=== PATIENT | female | born 1960 | race Caucasian/White ===

== ENCOUNTER 2021-05-20 11:30 | Inpatient (IN) | payer MEDICARE, MEDICAID ==
[~2021-05-20] VITALS: Ht 177.8 cm; Wt 109.2 kg
[2021-05-20 11:55] LABS: BASO % 0 % (0-3); EOS # 0.7 x10^3/uL (0.0-0.7); EOS % 9 % (0-3); HEMATOCRIT 43.6 % (36.0-47.0); HEMOGLOBIN 14.5 g/dL (12.0-15.5); LYMPH # 1.4 x10^3/uL (1.0-4.8); LYMPH % 18 % (24-48); MEAN CORPUSCULAR HEMOGLOBIN 31 pg (25-35); MEAN CORPUSCULAR HGB CONC 33 g/dL (31-37); MEAN CORPUSCULAR VOLUME 92 fL (79-100); MONO # 0.5 x10^3/uL (0.0-1.1); MONO % 7 % (0-9); NEUT # 5.1 x10^3/uL (1.8-7.7); NEUT % 66 % (31-73); PLATELET COUNT 180 x10^3/uL (140-400); RED BLOOD COUNT 4.73 x10^6/uL (3.50-5.40); WHITE BLOOD COUNT 7.8 x10^3/uL (4.0-11.0)
[2021-05-20 12:05] LABS: CALCIUM 9.3 mg/dL (8.5-10.1); CREATININE 0.6 mg/dL (0.6-1.0); POTASSIUM 4.1 mmol/L (3.5-5.1); PROTHROMBIN TIME PATIENT 12.2 SEC (11.7-14.0)
[2021-05-20 12:11] LABS: ALBUMIN 3.7 g/dL (3.4-5.0); TOTAL BILIRUBIN 1.4 mg/dL (0.2-1.0); TOTAL PROTEIN 7.4 g/dL (6.4-8.2)
--- NOTE | 2021-05-20 13:14 | PHYS DOC ---
Past Medical History Additional Past Medical Histor: MALIGNANT NEOPLASM OF FRONTAL LOBE,EPILEPSY,FALLS,HEMORRHAGIC BRAIN TUMOR Past Surgical History: Other Additional Past Surgical Histo: UNKNOWN Smoking Status: Never Smoker Alcohol Use: None General Adult EDM: Chief Complaint: LOWER EXTREMITY SWELLING HPI: HPI: Patient is a 61 year old female who presents with here from [facility] after having a Doppler done on her right lower leg and it showed a groin to popliteal partial thrombosis. She is not on any kind of blood thinner. She has been complaining of edema and pain in the right lower leg. Patient has a history of seizures, hemiplegia on the right, hypothyroidism, difficulty walking, lack of coordination, cognitive communication deficit, high cholesterol, GERD, muscle weakness and atrophy, falls, epidural hemorrhage, malignant neoplasm of frontal lobe, cognitive communication deficit, epilepsy. Review of Systems: Review of Systems: Constitutional: Denies fever or chills. [] Eyes: Denies change in visual acuity. [] HENT: Denies nasal congestion or sore throat. [] Respiratory: Denies cough or shortness of breath. [] Cardiovascular: Denies chest pain or +edema. [] GI: Denies abdominal pain, nausea, vomiting, bloody stools or diarrhea. [] : Denies dysuria. [] Musculoskeletal: Denies back pain or joint pain. + Right leg pain [] Integument: Denies rash. [] Neurologic: Denies headache, focal weakness or sensory changes. [] Endocrine: Denies polyuria or polydipsia. [] Lymphatic: Denies swollen glands. [] Psychiatric: Denies depression or anxiety. [] Heart Score: C/O Chest Pain: No HEART Score for Chest Pain: HEART Score for Chest Pain Response (Comments) Value History Slighlty/Non-Suspicious 0 ECG Normal 0 Age >45 - < 65 1 Risk Factors 1 or 2 Risk Factors 1 Troponin < Normal Limit 0 Total 2 Risk Factors: Risk Factors: DM, Current or recent (<one month) smoker, HTN, HLP, family history of CAD, obesity. Risk Scores: Score 0 - 3: 2.5% MACE over next 6 weeks - Discharge Home Score 4 - 6: 20.3% MACE over next 6 weeks - Admit for Clinical Observation Score 7 - 10: 72.7% MACE over next 6 weeks - Early Invasive Strategies Allergies: Allergies: Allergies Coded Allergies Type Severity Reaction Last Updated Verified Influenza Virus Vaccines Allergy Intermediate UNKNOWN 05/20/21 Yes Physical Exam: PE: Constitutional: Well developed, well nourished, no acute distress, non-toxic appearance. [] HENT: Normocephalic, atraumatic, bilateral external ears normal, oropharynx moist, no oral exudates, nose normal. [] Eyes: PERRLA, EOMI, conjunctiva normal, no discharge. [] Neck: Normal range of motion, no tenderness, supple, no stridor. [] Cardiovascular:Heart rate regular rhythm, no murmur [] Lungs & Thorax: Bilateral breath sounds clear to auscultation [] Abdomen: Bowel sounds normal, soft, no tenderness, no masses, no pulsatile masses. [] Skin: Warm, dry, no erythema, no rash. [] Back: No tenderness, no CVA tenderness. [] Extremities: No tenderness, no cyanosis, no clubbing, ROM intact, right leg 2+ edema. [] Neurologic: Alert and oriented X 3, normal motor function, normal sensory function, no focal deficits noted. [] Psychologic: Affect normal, judgement normal, mood normal. [] Current Patient Data: Labs: Laboratory Tests Test 05/20/21 11:40 White Blood Count 7.8 x10^3/uL (4.0-11.0) Red Blood Count 4.73 x10^6/uL (3.50-5.40) Hemoglobin 14.5 g/dL (12.0-15.5) Hematocrit 43.6 % (36.0-47.0) Mean Corpuscular Volume 92 fL (79-100) Mean Corpuscular Hemoglobin 31 pg (25-35) Mean Corpuscular Hemoglobin Concent 33 g/dL (31-37) Red Cell Distribution Width 13.0 % (11.5-14.5) Platelet Count 180 x10^3/uL (140-400) Neutrophils (%) (Auto) 66 % (31-73) Lymphocytes (%) (Auto) 18 % (24-48) L Monocytes (%) (Auto) 7 % (0-9) Eosinophils (%) (Auto) 9 % (0-3) H Basophils (%) (Auto) 0 % (0-3) Neutrophils # (Auto) 5.1 x10^3/uL (1.8-7.7) Lymphocytes # (Auto) 1.4 x10^3/uL (1.0-4.8) Monocytes # (Auto) 0.5 x10^3/uL (0.0-1.1) Eosinophils # (Auto) 0.7 x10^3/uL (0.0-0.7) Basophils # (Auto) 0.0 x10^3/uL (0.0-0.2) Prothrombin Time 12.2 SEC (11.7-14.0) Prothrombin Time INR 0.9 (0.8-1.1) Activated Partial Thromboplast Time 29 SEC (24-38) Sodium Level 137 mmol/L (136-145) Potassium Level 4.1 mmol/L (3.5-5.1) Chloride Level 101 mmol/L (98-107) Carbon Dioxide Level 28 mmol/L (21-32) Anion Gap 8 (6-14) Blood Urea Nitrogen 11 mg/dL (7-20) Creatinine 0.6 mg/dL (0.6-1.0) Estimated GFR (Cockcroft-Gault) 101.0 BUN/Creatinine Ratio 18 (6-20) Glucose Level 99 mg/dL (70-99) Calcium Level 9.3 mg/dL (8.5-10.1) Total Bilirubin 1.4 mg/dL (0.2-1.0) H Aspartate Amino Transferase (AST) 28 U/L (15-37) Alanine Aminotransferase (ALT) 41 U/L (14-59) Alkaline Phosphatase 52 U/L (46-116) LI-Ckq-W-Type Natriuretic Peptide 19 pg/mL (0-124) Total Protein 7.4 g/dL (6.4-8.2) Albumin 3.7 g/dL (3.4-5.0) Albumin/Globulin Ratio 1.0 (1.0-1.7) Laboratory Tests 05/20/21 11:40 Laboratory Tests 05/20/21 11:40 Vital Signs: Vital Signs Date Time Temp Pulse Resp B/P (MAP) Pulse Ox O2 Delivery O2 Flow Rate FiO2 05/20/21 11:30 97.6 67 18 141/83 (102) 95 Room Air 97.6 EKG: EK and read by Dr. Orantes is a sinus rhythm and no STEMI Radiology/Procedures: Radiology/Procedures: [] Impression: [facility] [address] [place], [place] [id number] IMAGING REPORT Signed PATIENT: ALYSIA MORAES ACCOUNT: [id number] : 1960 LOCATION: ER AGE: 61 SEX: F EXAM STATUS: REG ER ORD. PHYSICIAN: ANNIA LOPEZ APRN REASON: dvt present, no blood thinners PROCEDURE: CT ANGIOGRAPHY CHEST CT arteriogram of the chest. HISTORY: DVT, evaluate for pulmonary emboli CT arteriogram of the chest was done using 100 mL Omnipaque 350 contrast. Sagitt al and coronal MIP images were reconstructed. There is no mediastinal adenopathy. There is no pleural effusion. There is a hepatic steatosis. Visualized portions of liver and spleen are otherwise unremarkable. Adrenal glands are normal. There is an accessory spleen. There is atelectasis in the lung bases without other infiltrates. This study is negative for a pulmonary embolus. There is no significant coronary artery calcification. IMPRESSION: 1. Negative for pulmonary embolus. 2. Mild basilar atelectasis. 3. Hepatic steatosis. PQRS Compliance Statement: One or more of the following individualized dose reduction techniques were utilized for this examination: 1. Automated exposure control 2. Adjustment of the mA and/or kV according to patient size 3. Use of iterative reconstruction technique Electronically signed by: Bienvenido Newman MD (05/20/2021 2:45 PM) [facility] DICTATED and SIGNED BY: BIENVENIDO NEWMAN MD DATE: 05/20/21 1440 Course & Med Decision Making: Course & Med Decision Making Pertinent Labs and Imaging studies reviewed. (See chart for details) See HPI. Alert and oriented x3. Patient has some cognitive difficulties with communication. Bilateral lower extremity 2-3+ pitting. Bilateral pedal pulse strong are present. Cap refill less than 2 seconds. There does not seem to be any tenderness to the leg. Patient states she has had pain in that right leg but is been chronic for a very long time. She states is been a little bit more than usual. Vital signs are within normal limits. Spoke to Dr. Morin for admission. He states no blood thinners at this time. [] Dragon Disclaimer: Dragon Disclaimer: This electronic medical record was generated, in whole or in part, using a voice recognition dictation system. Departure Departure Impression: Primary Impression: DVT (deep venous thrombosis) Qualified Codes: I82.431 - Acute embolism and thrombosis of right popliteal vein Disposition: ADMITTED INPATIENT Admitting Physician: Madi. Jenkins Condition: STABLE Referrals: PATRICIA MORIN MD (PCP) ANNIA LOPEZ APRN May 20, 2021 13:14
[2021-05-20 13:57] LABS: BACTERIA,URINE MANY /HPF (0-FEW); RBC,URINE 0 /HPF (0-2)
[2021-05-20] MEDS ORDERED: IOHEXOL 350 MG/ML 100 ML VIAL. IV ONE (14:15)
[2021-05-20] MEDS ORDERED: CONTRAST GIVEN. MC PRN (14:30)
--- NOTE | 2021-05-20 14:48 | RAD ---
CT arteriogram of the chest. HISTORY: DVT, evaluate for pulmonary emboli CT arteriogram of the chest was done using 100 mL Omnipaque 350 contrast. Sagittal and coronal MIP im ages were reconstructed. There is no mediastinal adenopathy. There is no pleural effusion. There is a hepatic steatosis. Visualized portions of liver and spleen are otherwise unremarkable. Adrenal gland s are normal. There is an accessory spleen. There is atelectasis in the lung bases without other infi ltrates. This study is negative for a pulmonary embolus. There is no significant coronary artery calcification . IMPRESSION: 1. Negative for pulmonary embolus. 2. Mild basilar atelectasis. 3. Hepatic steatosis. PQRS Compliance Statement: One or more of the following individualized dose reduction techniques were utilized for this examinat ion: 1. Automated exposure control 2. Adjustment of the mA and/or kV according to patient size 3. Use of iterative reconstruction technique Electronically signed by: Bienvenido Newman MD (05/20/2021 2:45 PM) [facility]
[2021-05-20] MEDS ORDERED: IV NORMAL SALINE 500ML BAG 500 ML IV ONE (15:00)
[2021-05-20 19:25] VITALS: BP 130/69
[2021-05-20] MEDS ORDERED: LEVE100020 PO (21:18)
[2021-05-20] MEDS ORDERED: LEVO175T5 PO (21:18)
[2021-05-20] MEDS ORDERED: ACET325T21 PO (21:18)
[2021-05-20] MEDS ORDERED: CALC200T23 PO (21:18)
[2021-05-20] MEDS ORDERED: ASPI1TAB31 PO (21:18)
[2021-05-20] MEDS ORDERED: CALCIUM CARBONATE 500 MG TAB.CHEW PO PRN (21:59)
[2021-05-20] MEDS: levETIRAcetam 500 MG TABLET PO SCH (23:28)
[2021-05-20 23:30] VITALS: BP 116/55
[2021-05-21] VITALS (7 sets, daily range): BP systolic 104–123; BP diastolic 49–62
[2021-05-21] MEDS: ACETAMINOPHEN 325 MG TABLET. PO PRN (00:13)
--- NOTE | 2021-05-21 06:58 | EKG ---
[facility] [address] [place] [address] Test Date: 2021-05-20 Test Time: 11:39:23 Pat Name: ALYSIA MORAES Department: Room: 203 1 Gender: F Parking Lot Attendant: : 1960 Requested By: ANNIA LOPEZ Order Number: [id number] Reading MD: Koffi Henry Measurements Intervals [place] Rate: 74 P: 0 TX: 156 QRS: -10 QRSD: 76 T: 17 QT: 380 QTc: 427 Interpretive Statements SINUS RHYTHM LEFTWARD AXIS Electronically Signed On 05-21-2021 8:55:02 CDT by Koffi Henry
[2021-05-21] MEDS: levETIRAcetam 500 MG TABLET PO SCH ×2 (08:14→20:22)
[2021-05-21] MEDS: LEVOTHYROXINE 175 MCG TABLET PO SCH (08:14)
--- NOTE | 2021-05-21 10:51 | HP ---
DATE OF SERVICE: 05/21/2021 ADMIT DATE: 05/20/2021 HISTORY OF PRESENT ILLNESS: The patient is a 61-year-old female patient, a resident at [facility] since 09/2020. She was admitted there as a transfer from [facility] after admission to [facility]. At that time she came to us with right-sided hemiplegia and there was 2 account of possible malignant neoplasm of the frontal lobe with epilepsy and hemorrhage with brain tumor. The patient has been mostly bedbound, attempted physical therapy and occupation therapy, has failed as she plateaued and she has been mostly bedbound. She was noted recently by the nursing staff to have markedly swollen right lower extremity and therefore a venous Doppler ultrasound was done and was found to have right groin deep vein thrombosis in the right groin area extending to the popliteal vein with partial occlusion involving the superficial femoral and common femoral vein. Given that she has possible brain tumor with hemorrhage, a decision was made to admit her to [facility] to repeat CT scan of the head and also to arrange for IVC filter. Unfortunately, she did have a CT angio of the chest and according to the radiologist that precluded possibility of doing CT scan of the head but needs to wait for at least 24 hours and therefore I held on her anticoagulation given that she continued to be asymptomatic, in particular, denied any chest pain, shortness of breath, cough, phlegm or hemoptysis. Her oxygen saturation was well within normal range. We will eventually obviously repeat her CT scan of the head and if there is any hemorrhagic transformation, we will obviously proceed with the IVC filter otherwise, we might start to anticoagulate her. PAST MEDICAL HISTORY: Significant for hyperlipidemia, post-procedural hypothyroidism, right-sided hemiplegia, epidural hemorrhage with loss of consciousness, urinary tract infection, muscle weakness, unsteadiness on her feet, cognitive communication deficit, partial symptomatic epilepsy. There is also question of malignant neoplasm of the right frontal lobe, aphasia and dysphasia that has mostly resolved. PAST SURGICAL HISTORY: Unremarkable. FAMILY HISTORY: Noncontributory. SOCIAL HISTORY: She is . She lives at [facility]. She does not smoke, drink alcohol or use any recreational drugs. ALLERGIES: SHE IS ALLERGIC TO INFLUENZA VIRUS VACCINES. MEDICATIONS: She is currently on the following medications: She is on Excedrin Migraine tablets, she takes two tablets every 6 hours, acetaminophen 650 mg every 4 hours, Keppra 1000 mg twice a day, calcium carbonate 200 mg every 6 hours, levothyroxine sodium 175 mcg once a day. REVIEW OF SYSTEMS: As per history of present illness. PHYSICAL EXAMINATION: GENERAL: On arrival to the Emergency Room, the patient looked somewhat pale, not jaundiced, cyanosed, no lymphadenopathy, no thyromegaly, no jugular venous distention, markedly swollen right lower extremity compared to the left lower extremity. VITAL SIGNS: Her heart rate was 73, blood pressure is 121/59, temperature 97.6, respiratory rate was 17 and oxygen saturation was 95%. HEAD, EYES, EARS, NOSE AND THROAT: Normocephalic, atraumatic. NECK: Supple. HEART: Showed normal first and second heart sounds. No gallop, rub or murmur. CHEST: Clear to auscultation, no crepitation or rhonchi. ABDOMEN: Distended, soft, nontender. NEUROLOGIC: She is awake, alert, responding appropriately. All her cranial nerves intact. She has right-sided hemiplegia with markedly swollen right lower extremity compared to the left. Her venous Doppler ultrasound done at the facility showed that she has, venous Doppler ultrasound involving the right groin extending to the popliteal vein with partial occlusion involving the superficial femoral vein and common femoral vein. She did have a CT angio of the chest, which showed that the patient was negative for pulmonary embolism and mild basilar atelectasis and hepatic steatosis. LABORATORY DATA: Her lab work showed a white cell count of 7.8, hemoglobin 14.5, hematocrit 44, MCV 92 and platelet count of 180,000 with normal manual differential. Her chemistry showed a serum sodium 137, potassium 4.1, chloride 101, bicarbonate 28, anion gap of 8, BUN 11, creatinine 0.6. Estimated GFR was 101. Her glucose was 99, calcium was 9.3. Total bilirubin 1.4. AST, ALT, alkaline phosphatase were normal. Her total protein 7.4, albumin 3.7. Her beta natriuretic peptide was only 19 and troponin I high sensitivity was less than 4. Her prothrombin time, INR and APTT were normal and urinalysis was essentially unrevealing. ASSESSMENT AND PLAN: My plan is to reconcile all her medications and I will arrange to have the CT scan of the head without contrast and once that is read and there is no evidence of intracranial hemorrhage or brain tumor with hemorrhage we will anticoagulate her but otherwise we will arrange for her to have an IVC filter. GREGORIA/BETTY DR: Kamran TID: [id number]
--- NOTE | 2021-05-21 10:59 | RAD ---
CT HEAD/BRAIN WO History: History of malignant right frontal lobe tumor with bleeding. Comparison: None. Technique: Noncontrast CT imaging was performed of the head. Findings: There are postsurgical changes from left frontal craniotomy with adjacent left frontal epidural mixed density collection measuring approximately 1.3 cm thickness by 5.5 cm AP and adjacent encephalomalac ia change. Right frontal extra-axial mass measuring 2.3 x 1.7 x 1.3 cm adjacent to the falx and inner table of the right frontal dura. This demonstrates central increased density, possibly calcification or hemorrhage. No evidence of acute territorial infarction. Imaged orbits are unremarkable. Imaged paranasal sinuses and mastoid air cells are clear. Impression: 1. Left frontal craniotomy changes with mixed density epidural collection adjacent to the craniotomy measuring 5.5 x 1.3 cm, possible acute on chronic epidural hematoma. Left frontal encephalomalacia. 2. Right frontal extradural mass measuring 2.3 x 1.7 x 1.3 cm with central increased density, likely representing calcification in a meningioma, however cannot exclude hemorrhage. MRI is recommended fo r further evaluation. Consider correlation with prior outside imaging. Findings discussed with patient's nurse Anne at 05/21/2021 10:57 AM. FOR INTERNAL CODING PURPOSES RESULT CODE: (C) ----- Exposure: One or more of the following individualized dose reduction techniques were utilized for thi s examination: 1. Automated exposure control 2. Adjustment of the mA and/or kV according to patient size 3. Use of iterative reconstruction technique. Electronically signed by: Lauri Iqbal MD (05/21/2021 10:57 AM) [id number]
--- NOTE | 2021-05-21 12:09 | CONS ---
DATE OF CONSULTATION: 05/21/2021 PULMONARY CONSULTATION ATTENDING PHYSICIAN: Gregory Morin MD REASON FOR CONSULTATION: DVT, history of brain tumor and subdural hematoma. HISTORY OF PRESENT ILLNESS: The patient is a 61-year-old obese female with a BMI of 34.5. The patient has history of a brain tumor. According to her, it was diagnosed when she was 26 years old. She had surgery as well as radiation. The patient was recently admitted at [facility]. She was seen recently at after a fall. The patient was noted to have increasing swelling in her right lower extremity. She had an outpatient Venous Dopplers, which showed a clot in the right groin extending to the popliteal vein. There is partial occlusion involving the superficial femoral vein and common femoral vein. She denies any chest pain. Denies any shortness of breath. Denies any syncopal episode. She is pretty much bedbound. The patient has no prior history of thromboembolic disease. I have been asked to see her for further evaluation. She underwent CT angiogram, which was reviewed by me. There is no evidence of pulmonary embolism. There is mild basilar atelectasis. The patient underwent CT of the head. It shows multiple abnormalities including left frontal craniotomy changes with mixed density epidural collection adjacent to the craniotomy suggestive of acute on chronic epidural hematoma. She had left frontal encephalomalacia. She has right frontal extradural mass. Hemorrhage could not be excluded. PAST MEDICAL HISTORY: Significant for hyperlipidemia, history of hypothyroidism, history of right-sided hemiplegia, history of epidural hemorrhage with loss of consciousness, history of urinary tract infection, history of brain tumor, status post radiation and craniotomy when she was 26 years old, history of cognitive communication deficit, history of partial symptomatic epilepsy, history of malignant neoplasm of the right frontal lobe, atrial fibrillation. PAST SURGICAL HISTORY: As discussed above including craniotomy. FAMILY HISTORY: Noncontributory to lungs. No history of thromboembolic disease. SOCIAL HISTORY: Does not smoke cigarettes. She lives at [facility]. ALLERGIES: INFLUENZA VIRUS VACCINE. MEDICATIONS: Reviewed as listed in the MRAD. REVIEW OF SYSTEMS: Twelve-point review of system is obtained. Pertinent positives discussed in my present illness, otherwise noncontributory. All systems that were negative were reviewed as well. PHYSICAL EXAMINATION: VITAL SIGNS: Reviewed. Pulse ox 95% on room air, blood pressure stable. NECK: Supple. LUNGS: Clear. CARDIOVASCULAR: With a regular rate. ABDOMEN: Soft, nontender. EXTREMITIES: With significant swelling in the right lower extremity. There is also 1+ pitting edema. LABORATORY DATA: Reviewed. INR 0.9. White cell count 7.8, hemoglobin 14.5 and platelets of 180. IMPRESSION: 1. Significant deep venous thrombosis in the right lower extremity. Risk factors likely related to immobilization and underlying obesity. The patient cannot be placed on anticoagulation. She has a history of brain neoplasm. The patient's CT head done today showed left frontal craniotomy with mixed density epidural collection suspicious for acute on chronic epidural hematoma. There is also right frontal extradural mass, which is suspicious for meningioma and hemorrhage cannot be ruled out. We will consult Interventional Radiology for IVC filter. There is no evidence of pulmonary embolism. 2. No prior history of thromboembolic disease. 3. History of brain tumor, status post resection/craniotomy when she was 26 years old. She also received radiation. 4. Abnormal venous Dopplers with evidence of clot in the right groin extending through the popliteal vein. There is partial occlusion involving the superficial femoral vein and common femoral vein. RECOMMENDATIONS: 1. Discussed with the patient regarding the need for IVC filter. She is agreeable to that. She is not a candidate for anticoagulation based on CT head findings. 2. Continue anti-seizure medication per PCP. 3. Discussed with Dr. Morin and discussed with RN. We will consult Interventional Radiology. This IVC filter would be permanent. Addend: d/w IR. explained the need for IVC filter. He agrees. Scheduled for today. MAXX/BRENNA MCLEAN: Tito TID: [id number] MTDD
--- NOTE | 2021-05-21 12:57 | PN ---
DATE: 05/21/2021 SUBJECTIVE: The patient was admitted yesterday with markedly swollen right lower extremity. Venous Doppler ultrasound confirmed that she has deep vein thrombosis involving the right superficial and common femoral as well as popliteal vein. She has a history of epidural hematoma and also brain tumor and therefore, I was reluctant to anticoagulate her before finding more about her CT scan of the head. Unfortunately, she did receive contrast yesterday in the form of CT angio of the chest and the holter technician recommended to wait for 24 hours; however, when I discussed the radiologist today they recommended to go ahead and do the CT scan of the head, which showed that the patient has left frontal craniotomy changes with mixed density epidural collection adjacent to the craniotomy measuring 5.5 x 1.3 cm with possible acute on chronic epidural hematoma and left frontal encephalomalacia. She also has right frontal extradural mass measuring 2.3 x 1.7 x 1.3 cm with central increased density, likely representing calcification in a meningioma; however, cannot exclude hemorrhage. MRI is recommended for further evaluation. Consider correlation with prior outside imaging. I did discuss the presentation, the findings with the polysomnograph tech who recommended IVC filter and likely the interventional radiologist agreed to place the IVC filter today. PHYSICAL EXAMINATION: GENERAL: When I examined her this morning, she looked well and was clearly in no apparent respiratory distress. No pallor, jaundice, cyanosis or thyromegaly. No jugular venous distention. No lower limb edema. VITAL SIGNS: Her heart rate was 73, blood pressure is 121/59, temperature 97.6, respiratory rate was 17 and oxygen saturation was 95%. HEAD, EYES, EARS, NOSE, AND THROAT: Normocephalic, atraumatic. NECK: Supple. HEART: Showed normal first and second heart sounds. No gallop, rub or murmur. CHEST: Clear to auscultation, no crepitation or rhonchi. ABDOMEN: Distended, soft, nontender. NEUROLOGIC: She is awake, alert, continued to have right-sided hemiplegia, although aphasia and dysphagia has resolved. ASSESSMENT: Right lower extremity deep venous thrombosis for which an IVC filter was recommended and will be placed today. Other medical problems include hyperlipidemia, hypothyroidism, right-sided hemiplegia, epidural hemorrhage, urinary tract infection, muscle weakness, unsteadiness in her feet. Cognitive communication deficit, partial symptomatic epilepsy and right frontal lobe neoplasm. AMM/BRAYAN DR: Kamran TID: [id number]
[2021-05-21] MEDS ORDERED: IODIXANOL 320 MG/ML 50ML VIAL. ONE (13:48)
[2021-05-21] MEDS ORDERED: LIDOCAINE WITH 8.4% SOD BICARB 3 ML DISP.SYRIN. ONE (13:49)
[2021-05-21] MEDS ORDERED: fentaNYL PF VIAL 100 MCG/2 ML VIAL ONE (14:12)
[2021-05-21] MEDS ORDERED: MIDAZOLAM HCL/PF 2 MG/2 ML VIAL. ONE (14:12)
[2021-05-21] MEDS ORDERED: LIDOCAINE WITH 8.4% SOD BICARB 3 ML DISP.SYRIN. IJ ONE (14:30)
[2021-05-21] MEDS ORDERED: MIDAZOLAM HCL/PF 2 MG/2 ML VIAL. IV ONE (14:30)
[2021-05-21] MEDS ORDERED: fentaNYL PF VIAL 100 MCG/2 ML VIAL IV ONE (14:30)
[2021-05-21] MEDS ORDERED: IODIXANOL 320 MG/ML 50ML VIAL. IV ONE (14:30)
[2021-05-21] MEDS ORDERED: CONTRAST GIVEN. MC PRN (14:30)
[2021-05-21] MEDS: ASA/APAP/CAFFEINE 250/250/65MG TABLET. PO PRN (20:27)
[2021-05-22 03:00] VITALS: BP 108/56
[2021-05-22 07:00] VITALS: BP 120/67
[2021-05-22] MEDS: LEVOTHYROXINE 175 MCG TABLET PO SCH (07:56)
[2021-05-22] MEDS: levETIRAcetam 500 MG TABLET PO SCH ×2 (07:57→21:33)
--- NOTE | 2021-05-22 09:02 | PN ---
DATE: 05/22/2021 SUBJECTIVE: The patient is resting, slightly propped up in bed, in no apparent distress, awake, alert. On questioning her, denied any complaint. She apparently had had an IVC filter placed successfully yesterday. OBJECTIVE: GENERAL: On examining her, she looked well and was clearly in no apparent respiratory distress. No pallor, jaundice, cyanosis or thyromegaly. No jugular venous distention. No lower limb edema. VITAL SIGNS: Her heart rate was 65, blood pressure 120/67, temperature 97.6, respiratory rate was 17 and oxygen saturation was 94%. HEAD, EYES, EARS, NOSE, AND THROAT: Normocephalic, atraumatic. NECK: Supple. HEART: Normal first and second heart sounds. No gallop, rub or murmur. CHEST: Shows central trachea, equal bilateral expansion, air entry, vesicular breath sounds. No crepitation or rhonchi. ABDOMEN: Distended, soft, nontender. NEUROLOGIC: She is awake, alert, responding appropriately. She has right-sided hemiplegia. ASSESSMENT: 1. Right lower extremity deep vein thrombosis for which she has an inferior vena cava filter placed. 2. The patient has left frontal craniotomy changes with mixed density epidural collection adjacent to the craniotomy with possible acute on chronic epidural hematoma and left frontal encephalomalacia. 3. Right frontal extradural mass measuring 2.3 x 1.7 x 1.3 with central decreased density, likely representing calcification a meningioma; however, cannot exclude hemorrhage. 4. The patient has multiple other medical problems including: A. Left-sided epidural hematoma with right-sided hemiplegia. B. Hyperlipidemia. C. Hypothyroidism. D. Cognitive communication deficit. E. Epilepsy. F. Right frontal lobe neoplasm, likely meningioma. LILLI DR: Kamran TID: [id number]
--- NOTE | 2021-05-22 10:02 | PDOC ---
PULMONARY PROGRESS NOTES DATE: 05/22/21 TIME: 10:00 Subjective Patient denies any shortness of breath. Remains on room air. Vitals Vital Signs Date Time Temp Pulse Resp B/P (MAP) Pulse Ox O2 Delivery O2 Flow Rate FiO2 05/22/21 07:00 97.6 65 17 120/67 (84) 94 Room Air 97.6 05/21/21 14:50 2.0 General: Alert, No acute distress Lungs: Clear Cardiovascular: S1 Abdomen: Soft, Other (Obese) Extremities: Other (Significant right leg edema) Labs Laboratory Tests Test 05/20/21 11:40 05/20/21 13:33 White Blood Count 7.8 x10^3/uL (4.0-11.0) Red Blood Count 4.73 x10^6/uL (3.50-5.40) Hemoglobin 14.5 g/dL (12.0-15.5) Hematocrit 43.6 % (36.0-47.0) Mean Corpuscular Volume 92 fL (79-100) Mean Corpuscular Hemoglobin 31 pg (25-35) Mean Corpuscular Hemoglobin Concent 33 g/dL (31-37) Red Cell Distribution Width 13.0 % (11.5-14.5) Platelet Count 180 x10^3/uL (140-400) Neutrophils (%) (Auto) 66 % (31-73) Lymphocytes (%) (Auto) 18 % (24-48) Monocytes (%) (Auto) 7 % (0-9) Eosinophils (%) (Auto) 9 % (0-3) Basophils (%) (Auto) 0 % (0-3) Neutrophils # (Auto) 5.1 x10^3/uL (1.8-7.7) Lymphocytes # (Auto) 1.4 x10^3/uL (1.0-4.8) Monocytes # (Auto) 0.5 x10^3/uL (0.0-1.1) Eosinophils # (Auto) 0.7 x10^3/uL (0.0-0.7) Basophils # (Auto) 0.0 x10^3/uL (0.0-0.2) Prothrombin Time 12.2 SEC (11.7-14.0) Prothromb Time International Ratio 0.9 (0.8-1.1) Activated Partial Thromboplast Time 29 SEC (24-38) Sodium Level 137 mmol/L (136-145) Potassium Level 4.1 mmol/L (3.5-5.1) Chloride Level 101 mmol/L (98-107) Carbon Dioxide Level 28 mmol/L (21-32) Anion Gap 8 (6-14) Blood Urea Nitrogen 11 mg/dL (7-20) Creatinine 0.6 mg/dL (0.6-1.0) Estimated GFR (Cockcroft-Gault) 101.0 BUN/Creatinine Ratio 18 (6-20) Glucose Level 99 mg/dL (70-99) Calcium Level 9.3 mg/dL (8.5-10.1) Total Bilirubin 1.4 mg/dL (0.2-1.0) Aspartate Amino Transf (AST/SGOT) 28 U/L (15-37) Alanine Aminotransferase (ALT/SGPT) 41 U/L (14-59) Alkaline Phosphatase 52 U/L (46-116) Troponin I High Sensitivity < 4 ng/L (4-50) SL-Krj-[id number]-Type Natriuretic Peptide 19 pg/mL (0-124) Total Protein 7.4 g/dL (6.4-8.2) Albumin 3.7 g/dL (3.4-5.0) Albumin/Globulin Ratio 1.0 (1.0-1.7) Urine Collection Type U cath Urine Color (Auto) Light yellow Urine Turbidity Clear Urine pH (Auto) 6.5 (<5.0-8.0) Urine Specific [place] 1.006 (1.000-1.030) Urine Protein (Auto) Negative mg/dL (Negative) Urine Glucose (Auto)(UA) Negative mg/dL (Negative) Urine Ketones (Auto) Negative mg/dL (Negative) Urine Blood (Auto) Trace (Negative) Urine Nitrite Negative (Negative) Urine Bilirubin (Auto) Negative (Negative) Urine Urobilinogen (Auto) Normal mg/dL (Normal) Urine Leukocyte Esterase (Auto) Negative (Negative) Urine RBC 0 /HPF (0-2) Urine WBC 1-4 /HPF (0-4) Urine Squamous Epithelial Cells Many /LPF Urine Bacteria Many /HPF (0-FEW) Medications Active Scripts Medications Dose Route/Sig Max Daily Dose Days Date Category Levothyroxine Sodium 175 Mcg Tablet 175 Mcg PO DAILYAC 05/20/21 Reported Keppra (Levetiracetam) 1,000 Mg Tablet 1,000 Mg PO BID 05/20/21 Reported Excedrin Migraine Caplet (Aspirin/Acetaminophen/Caffeine) 1 Each Tablet 2 Each PO Q6HRS 05/20/21 Reported Calcium Carbonate 200 Mg Tab.chew 200 Mg PO Q6HRS 05/20/21 Reported Acetaminophen 325 Mg Tablet 650 Mg PO Q4HRS PRN 05/20/21 Reported Impression . 1. Significant deep venous thrombosis in the right lower extremity. Risk factors likely related to immobilization and underlying obesity. The patient cannot be placed on anticoagulation. She has a history of brain neoplasm. The patient's CT head done today showed left frontal craniotomy with mixed density epidural collection suspicious for acute on chronic epidural hematoma. There is also right frontal extradural mass, which is suspicious for meningioma and hemorrhage cannot be ruled out. Status post IVC filter. There is no evidence of pulmonary embolism. 2. No prior history of thromboembolic disease. 3. History of brain tumor, status post resection/craniotomy when she was 26 years old. She also received radiation. 4. Abnormal venous Dopplers with evidence of clot in the right groin extending through the popliteal vein. There is partial occlusion involving the superficial femoral vein and common femoral vein. Plan . 1. Status post IVC filter. She is not a candidate for anticoagulation based on CT head findings. 2. Continue anti-seizure medication per PCP. 3. Discussed with Dr. Morin and discussed with RN. 4. Continue supportive treatment OSEI KRISHNA MD May 22, 2021 10:02
[2021-05-22 11:00] VITALS: BP 106/72
[2021-05-22 15:00] VITALS: BP 110/54
[2021-05-22 19:00] VITALS: BP 108/63
[2021-05-22] MEDS: ASA/APAP/CAFFEINE 250/250/65MG TABLET. PO PRN (21:34)
[2021-05-22 23:00] VITALS: BP 113/52
[2021-05-23 07:00] VITALS: BP 117/60
[2021-05-23] MEDS: LEVOTHYROXINE 175 MCG TABLET PO SCH (08:10)
[2021-05-23] MEDS: levETIRAcetam 500 MG TABLET PO SCH (08:10)
[2021-05-23] MEDS: ACETAMINOPHEN 325 MG TABLET. PO PRN (08:12)
--- NOTE | 2021-05-23 08:23 | SNU/HH DC ---
DISCHARGE ORDERS DISCHARGE INFORMATION: DISCHARGE DATE: May 23, 2021 FINAL DIAGNOSIS Problems Medical Problems: (1) DVT (deep venous thrombosis) Status: Acute CONDITION ON DISCHARGE: Stable CODE STATUS: Code Status: Full ALF: SNF STAY <30 DAYS: Yes POST DISCHARGE ORDERS: ACTIVITY ORDERS: Activity as tolerated DIET AFTER DISCHARGE: Regular TREATMENT/EQUIPMENT ORDERS: Physical Therapy For: Evalulation/Treatment Occupational Therapy For: Evaluation/Treatment DISCHARGE MEDICATIONS: Home Meds Reported Medications Levothyroxine Sodium (LEVOTHYROXINE SODIUM) 175 Mcg Tablet, 175 MCG PO DAILYAC for THYROID SUPPLEMENT, #30 TAB 0 Refills 05/20/21 Levetiracetam (KEPPRA) 1,000 Mg Tablet, 1000 MG PO BID for seizures, TAB 05/20/21 Calcium Carbonate (CALCIUM CARBONATE) 200 Mg Tab.chew, 200 MG PO Q6HRS for gas, TAB.CHEW 05/20/21 Acetaminophen (ACETAMINOPHEN) 325 Mg Tablet, 650 MG PO Q4HRS PRN for PAIN, TAB 05/20/21 Discontinued Reported Medications Aspirin/Acetaminophen/Caffeine (EXCEDRIN MIGRAINE CAPLET) 1 Each Tablet, 2 EACH PO Q6HRS for pains, TAB 05/20/21 PATRICIA STANLEY MD May 23, 2021 08:23
--- NOTE | 2021-05-23 10:08 | NUR ---
SS following up with discharge planning. SS reviewed pt chart and discussed with pt RN. Pt is resident from [facility], ; fax [phone], and is currently on room air. Discharge orders received for return to facility and sent with clinical to [facility]. Pt will discharge today and return to [facility] via stretcher transport between 1230 and 1300 via [facility]. [facility] to provide transportation. Packet placed on chart. Pt's RN notified.
[2021-05-23 10:47] VITALS: BP 106/54
--- NOTE | 2021-05-23 10:59 | PDOC ---
PULMONARY PROGRESS NOTES DATE: 05/23/21 TIME: 10:59 Subjective Patient denies any shortness of breath. Remains on room air. Vitals Vital Signs Date Time Temp Pulse Resp B/P (MAP) Pulse Ox O2 Delivery O2 Flow Rate FiO2 05/23/21 10:47 97.8 66 18 106/54 (71) 94 Room Air 97.8 General: Alert, No acute distress Lungs: Clear Cardiovascular: S1 Abdomen: Soft, Other (Obese) Extremities: Other (Significant right leg edema) Labs Laboratory Tests Test 05/22/21 10:15 Coronavirus (COVID-19)(PCR) Not detected (NOT DETECTD) SARS-CoV-2 Antigen (Rapid) Negative (NEGATIVE) Medications Active Scripts Medications Dose Route/Sig Max Daily Dose Days Date Category Levothyroxine Sodium 175 Mcg Tablet 175 Mcg PO DAILYAC 05/20/21 Reported Keppra (Levetiracetam) 1,000 Mg Tablet 1,000 Mg PO BID 05/20/21 Reported Excedrin Migraine Caplet (Aspirin/Acetaminophen/Caffeine) 1 Each Tablet 2 Each PO Q6HRS 05/20/21 Reported Calcium Carbonate 200 Mg Tab.chew 200 Mg PO Q6HRS 05/20/21 Reported Acetaminophen 325 Mg Tablet 650 Mg PO Q4HRS PRN 05/20/21 Reported Impression . 1. Significant deep venous thrombosis in the right lower extremity. Risk factors likely related to immobilization and underlying obesity. The patient cannot be placed on anticoagulation. She has a history of brain neoplasm. The patient's CT head done today showed left frontal craniotomy with mixed density epidural collection suspicious for acute on chronic epidural hematoma. There is also right frontal extradural mass, which is suspicious for meningioma and hemorrhage cannot be ruled out. Status post IVC filter. There is no evidence of pulmonary embolism. 2. No prior history of thromboembolic disease. 3. History of brain tumor, status post resection/craniotomy when she was 26 years old. She also received radiation. 4. Abnormal venous Dopplers with evidence of clot in the right groin extending through the popliteal vein. There is partial occlusion involving the superficial femoral vein and common femoral vein. Plan . 1. Status post IVC filter. She is not a candidate for anticoagulation based on CT head findings. 2. Continue anti-seizure medication per PCP. 3. Discussed with Dr. Morin and discussed with RN. 4. Continue supportive treatment 5. Patient to be discharged to skilled care today. OSEI KRISHNA MD May 23, 2021 10:59
--- NOTE | 2021-05-23 12:54 | NUR ---
Discharge Note: IDA MORAES Discharge instructions and discharge home medications reviewed with Jacy at [facility] and a copy given. All questions have been answered and understanding verbalized. Discontinued lines and drains: Peripheral IV intact. Patient discharged to [facility] via Stretcher.
--- NOTE | 2021-05-23 15:47 | RAD ---
PROCEDURE: IVC filter placement (99584) INDICATION: History of subdural hematoma and DVT, contraindication for anticoagulation. Flouroscopy-Radiation exposure: Kerma Air Product (in mGycm2): 45 Contrast: 20 mL [id number]. SEDATION: No sedation. Current history and physical and other medical records are reviewed prior to the procedure. CONSENT: Informed consent was obtained. The risks, benefits, potential complications and alternatives were reviewed and all questions answered. Estimated blood loss: 30 ml PROCEDURE: Prior to beginning the procedure, [place] Protocol was used to confirm the patient's jim ntity and planned procedure. Maximum sterile barriers including cap, mask, hand hygiene, sterile felton ves, sterile gown, large sterile drape and cutaneous antisepsis were used. The right internal jugular vein was evaluated by ultrasound. An image of the patent vessel was recor ded and saved to PACS. After local anesthetic administration, this vessel was accessed with a microp uncture needle using real-time ultrasound guidance. A guidewire and catheter are placed in the lower IVC. Subsequently, digital subtraction venogram of t he IVC was performed in frontal projections. The sheath was then advanced over a wire and utilizing its dilator into position at the level of the renal vein. Subsequently, an George filter is introduced through the sheath and deployed without diff iculty. Post deployment contrast injection through the sheath with DSA demonstrates satisfactory posi tion with no contrast extravasation. The introducer sheath was removed without difficulty and hemosta sis obtained with manual compression. No immediate complications. Findings: The venacavogram images demonstrate a normal IVC diameter of less than 2.8 cm with no thrombus. The renal veins are clearly identified and marked for position. IMPRESSION: 1. Normal inferior venacavogram. 2. Successful deployment of an Zaida retrievable filter in the infrarenal IVC. 3. Please refer the patient for filter retrieval, if filter is no longer needed, or anticoagulation c an be given. Electronically signed by: Tito Taylor MD (05/23/2021 3:45 PM) [id number]
== END 2021-05-23 12:54 | DRG 300 ==
LOC: ER 11:30 → ED HOLD 13:15 → 2 NORTH 18:25
PROVIDERS: ADMIT Internal Medicine; ATTEND Internal Medicine
PROC: 06H03DZ Insertion of Intraluminal Device into Inferior Vena Cava, Percutaneous Approach (ICD-10-PCS; principal; 2021-05-21)
DX: I82.431 Acute embolism and thrombosis of right popliteal vein (principal); J98.11 Atelectasis; G81.91 Hemiplegia, unspecified affecting right dominant side; Q89.09 Congenital malformations of spleen; D32.9 Benign neoplasm of meninges, unspecified; E66.9 Obesity, unspecified; E78.5 Hyperlipidemia, unspecified; E89.0 Postprocedural hypothyroidism; G93.89 Other specified disorders of brain; I48.91 Unspecified atrial fibrillation; K76.0 Fatty (change of) liver, not elsewhere classified; Z68.34 Body mass index [BMI] 34.0-34.9, adult; Z85.841 Personal history of malignant neoplasm of brain; Z86.718 Personal history of other venous thrombosis and embolism; Z87.440 Personal history of urinary (tract) infections; Z92.3 Personal history of irradiation; Z95.828 Presence of other vascular implants and grafts; Z88.7 Allergy status to serum and vaccine; Z20.822 Contact with and (suspected) exposure to COVID-19
CPT/HCPCS: 36415; 37191; 70450; 71275; 80053; 81001; 83880; 84484; 85025; 85610; 85730; 87086; 87426; 93005; 96360; 99152; 99153; C1892; J1644; J2250; J3010; J3490; J7040; Q9967; U0003; 99285-25; G0378